=== PATIENT | male | born 1990 | race Two or more races ===

== ENCOUNTER 2024-02-02 11:58 | Emergency (ER) | payer BC ==
[~2024-02-02] VITALS: Ht 170.2 cm; Wt 80.0 kg
[2024-02-02 12:00] VITALS: O2SAT 98
[2024-02-02] MEDS: ACETAMINOPHEN 325MG TABLET PO NR (12:31)
[2024-02-02 15:42] VITALS: BP 168/110; PULSE 90; RESP 17; TEMP 98.2
== END 2024-02-02 15:50 | disposition home or self-care (01) ==
LOC: ER 11:58
DX: M25.561 Pain in right knee (principal); M25.532 Pain in left wrist
CPT/HCPCS: 73110; 73562; 99284